=== PATIENT | female | born 1975 | race Caucasian/White ===

== ENCOUNTER 2020-06-22 08:16 | Emergency (ER) | payer OTHER ==
[2020-06-22 09:17] VITALS: BP 149/89; PULSE 80; TEMP 98.8; BMI 26.2
[2020-06-22] MEDS ORDERED: DICYCLOMINE HCL 20 MG TABLET PO ONE (09:29)
[2020-06-22] MEDS ORDERED: MAG HYDROX/AL HYDROX/SIMETH -MYLANTA- ORAL SUSPENSION PO ONE (09:29)
[2020-06-22] MEDS ORDERED: LACTATED RINGERS SOLUTION 1000 ML INFUS.BAG IV ONE (09:30)
[2020-06-22] MEDS ORDERED: ACETAMINOPHEN 1000 MG/100 ML VIAL (NON FORMULARY) IVPB ONE (09:31)
[2020-06-22 10:54] LABS: BASO % 1.2 % (0-2.0); EOS % 0.6 % (0-4.5); HEMATOCRIT 42.3 % (32.4-45.2); HEMOGLOBIN 14.8 GM/dL (10.7-15.3); LYMPH % 30.5 % (8-40); MCH 33.9 pg (25.7-33.7); MEAN CELL VOLUME 96.6 fl (80-96); MEAN PLT VOLUME 9.1 fl (7.5-11.1); MONO % 4.7 % (3.8-10.2); PLATELET COUNT 413 K/MM3 (134-434); RBC 4.38 M/mm3 (3.60-5.2); RDW 12.9 % (11.6-15.6); WHITE BLOOD COUNT 7.6 K/mm3 (4.0-10.0)
[2020-06-22] MEDS ORDERED: DICYCLOMINE HCL 10 MG CAPSULE ONE (10:59)
[2020-06-22] MEDS ORDERED: ACETAMINOPHEN INJECTION 100 ML IVPB ONE (10:59)
[2020-06-22 11:17] LABS: POTASSIUM 5.4 mmol/L (3.5-5.1)
[2020-06-22 11:21] LABS: CALCIUM 9.7 mg/dL (8.5-10.1)
[2020-06-22 11:24] LABS: ALBUMIN 3.8 g/dl (3.4-5.0); CREATININE 0.8 mg/dL (0.55-1.3)
[2020-06-22 11:30] LABS: BLOOD UREA NITROGEN 9.7 mg/dL (7-18)
[2020-06-22 11:32] LABS: BILIRUBIN,TOTAL 0.4 mg/dL (0.2-1)
== END 2020-06-22 14:45 | disposition home or self-care (01) ==
LOC: JER 08:16
PROC: 3E0333Z Introduction of Anti-inflammatory into Peripheral Vein, Percutaneous Approach (ICD-10-PCS; principal; 2020-06-22)
DX: K58.0 Irritable bowel syndrome with diarrhea (principal); R10.32 Left lower quadrant pain
CPT/HCPCS: 36415; 74177-TC; 80053; 83690; 84703; 85025; 99285-25; J0131

== ENCOUNTER 2021-08-27 14:52 | Emergency (ER) | payer OTHER ==
[2021-08-27 15:39] VITALS: BP 159/107; TEMP 98.2; BMI 25.7
[2021-08-27 16:23] LABS: ALBUMIN 4.3 g/dl (3.4-5.0); BILIRUBIN,TOTAL 0.6 mg/dl (0.2-1); CALCIUM 9.4 mg/dl (8.5-10); CREATININE 0.6 mg/dl (0.55-1.3); MAGNESIUM 2.2 mg/dL (1.8-2.4); PHOSPHOROUS 3.4 mg/dl (2.5-4.9); TOT PROT 7.2 g/dl (6.4-8.2)
[2021-08-27 16:24] LABS: HCG,QUALITATIVE URINE Negative; HEMATOCRIT 42.8 % (32.4-45.2); HEMOGLOBIN 15.2 G/dL (10.7-15.3); MCH 34.3 pg (25.7-33.7); MCHC 35.5 g/dl (32.0-36.0); MEAN CELL VOLUME 96.7 fl (80-96); MEAN PLT VOLUME 7.3 fl (7.5-11.1); PLATELET COUNT 354.6 10^3/uL (134-434); RBC 4.43 10^6/uL (3.60-5.2); RDW 13.6 % (11.6-15.6); WHITE BLOOD COUNT 6.5 10^3/uL (4.0-10.8)
[2021-08-27 17:44] LABS: PLATELET ESTIMATE ADEQUATE
[2021-08-27 18:30] VITALS: PULSE 79
== END 2021-08-27 18:30 | disposition home or self-care (01) ==
LOC: FER 14:52
DX: T50.905A Adverse effect of unspecified drugs, medicaments and biological substances, initial encounter (principal)
CPT/HCPCS: 36415; 71046-TC-FY; 80053; 81003; 82550; 83735; 84100; 84443; 84484; 84703; 85027; 93005; 99285-25

== ENCOUNTER 2023-05-23 17:20 | Emergency (ER) | payer OTHER ==
[2023-05-23 17:44] VITALS: RESP 18; BMI 21.6
[2023-05-23] MEDS ORDERED: ONDANSETRON 4 MG/2 ML VIAL ONE (18:49)
[2023-05-23] MEDS ORDERED: FAMOTIDINE 20 MG/50 ML IVPB 20 MG/50 ML MG IVPB ONE (18:49)
[2023-05-23] MEDS: SODIUM CHLORIDE 0.9% 500 ML INFUS.BAG IV ONE (19:01)
[2023-05-23] MEDS: FAMOTIDINE 20 MG/50 ML IVPB 20 MG/50 ML MG IVPB ONE (19:01)
[2023-05-23] MEDS: ONDANSETRON 4 MG/2 ML VIAL IVPUSH ONE (19:01)
[2023-05-23 19:05] LABS: BASO % 0.4 % (0-2.0); HEMATOCRIT 43.2 % (32.4-45.2); HEMOGLOBIN 14.7 GM/dL (10.7-15.3); LYMPH % 6.7 % (8-40); MCH 32.2 pg (25.7-33.7); MEAN CELL VOLUME 94.7 fl (80-96); MEAN PLT VOLUME 7.9 fl (7.5-11.1); MONO % 3.8 % (3.8-10.2); NEUT % 89.1 % (42.8-82.8); PLATELET COUNT 181 10^3/uL (134-434); RBC 4.56 M/mm3 (3.60-5.2); RDW 12.4 % (11.6-15.6); WHITE BLOOD COUNT 7.5 K/mm3 (4.0-10.0)
[2023-05-23 19:23] LABS: POTASSIUM 3.7 mmol/L (3.5-5.1)
[2023-05-23 19:26] LABS: CALCIUM 8.6 mg/dL (8.5-10.1)
[2023-05-23 19:27] LABS: ALBUMIN 3.8 g/dl (3.4-5.0)
[2023-05-23 19:30] LABS: CREATININE 0.7 mg/dL (0.55-1.3)
[2023-05-23 19:31] LABS: BILIRUBIN,TOTAL 0.3 mg/dL (0.2-1); TOT PROT 6.9 g/dl (6.4-8.2)
[2023-05-23 20:03] VITALS: BP 105/63; PULSE 84; TEMP 100.8
[2023-05-23] MEDS ORDERED: KETOROLAC TROMETHAMINE 30 MG/1 ML VIAL ONE (20:21)
[2023-05-23] MEDS ORDERED: ACETAMINOPHEN 500 MG TABLET (FP) ONE (20:21)
[2023-05-23] MEDS: KETOROLAC TROMETHAMINE 30 MG/1 ML VIAL IVPUSH ONE (20:26)
[2023-05-23] MEDS: ACETAMINOPHEN 500 MG TABLET (FP) PO ONE (20:27)
== END 2023-05-23 20:59 | disposition home or self-care (01) ==
LOC: JER 17:20
PROC: 3E033GC Introduction of Other Therapeutic Substance into Peripheral Vein, Percutaneous Approach (ICD-10-PCS; principal; 2023-05-23)
PROC: 3E033GC Introduction of Other Therapeutic Substance into Peripheral Vein, Percutaneous Approach (ICD-10-PCS; 2023-05-23)
PROC: 3E0333Z Introduction of Anti-inflammatory into Peripheral Vein, Percutaneous Approach (ICD-10-PCS; 2023-05-23)
DX: R05.9 Cough, unspecified (principal); R11.2 Nausea with vomiting, unspecified; R19.7 Diarrhea, unspecified; R51.9 Headache, unspecified; M54.6 Pain in thoracic spine; R07.9 Chest pain, unspecified; R63.0 Anorexia; J10.1 Influenza due to other identified influenza virus with other respiratory manifestations; Z20.822 Contact with and (suspected) exposure to COVID-19
CPT/HCPCS: 0241U-QW; 36415; 71046-TC-FY; 80053; 82962; 83690; 85025; 99284-25